=== PATIENT | female | born 1980 | race Caucasian/White ===

== ENCOUNTER 2017-03-09 17:31 | Emergency (ER) | payer OTHER ==
[~2017-03-09] VITALS: Ht 167.6 cm; Wt 65.0 kg
[2017-03-09 17:38] VITALS: Ht 167.6 cm; Wt 65.0 kg
--- NOTE | 2017-03-09 18:24 | RADRPT ---
PROCEDURE: XR Ankle. CLINICAL INDICATION: Left ankle pain. TECHNIQUE: Three views of the left ankle. COMPARISON: None available. FINDINGS: No fracture or dislocation is identified. The ankle mortise appears intact in this nonstressed stud y. The joint spaces are preserved. There is no significant soft tissue swelling. IMPRESSION: 1. No fracture or dislocation of the left ankle. RPTAT: HTAR .Wili Guzmán MD, MD Date Time Electronically viewed and signed by .Wili Guzmán MD, on 03/09/2017 18:24 .R/
--- NOTE | 2017-03-09 18:26 | RADRPT ---
PROCEDURE: XR Foot. CLINICAL INDICATION: Pain. TECHNIQUE: Three views of the left foot. COMPARISON: None available. FINDINGS: There is a fracture of the fifth middle phalanx. The joint spaces are preserved. There is minimal soft tissue swelling in the region of the fracture. IMPRESSION: 1. Fracture of the fifth middle phalanx. RPTAT: HTAR .Wili Guzmán MD, Date Time Electronically viewed and signed by .Wili Guzmán MD, on 03/09/2017 18:26 .R/
[2017-03-09] MEDS ORDERED: KETOROLAC 30 MG INJ IV STA (19:02)
[2017-03-09] MEDS ORDERED: IBUP800T25 PO (19:29)
[2017-03-09 19:45] VITALS: BP 111/61; PULSE 91; RESP 14; TEMP 98.6
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
== END 2017-03-09 19:45 | disposition home or self-care (01) ==
LOC: FTE 17:31
DX: S62.627A Displaced fracture of middle phalanx of left little finger, initial encounter for closed fracture (principal); V89.2XXA Person injured in unspecified motor-vehicle accident, traffic, initial encounter
CPT/HCPCS: 73610; 73630; 96374; J1885; Z7502